=== PATIENT | female | born 1975 | race African-American/Black ===

== ENCOUNTER 2016-10-07 01:33 | Emergency (ER) | payer MEDICARE, MEDICAID ==
[2016-10-07] MEDS ORDERED: NAPROXEN 250 MG TABLET PO ONE (02:39)
--- NOTE | 2016-10-07 02:42 | ER Document Report ---
ED General Pain - General Chief Complaint: Pain All Over Stated Complaint: ABDOMINAL CRAMPS AND PAIN Notes: Patient is a 40-year-old female, past medical history osteoarthritis and frequent muscle cramps, presents with her usual muscle aches and cramping that she gets when she has her menstrual period. She has been seen in the emergency room multiple times for this issue. She tried her home ibuprofen and Tylenol without much relief. "I need some Percocet." She denies leg swelling, numbness, tingling, fevers, headache, dysuria or back pain. TRAVEL OUTSIDE OF THE [place] IN LAST 30 DAYS: No - Related Data Allergies/Adverse Reactions: aspirin [Aspirin] Allergy (Intermediate, Verified 11/29/14 18:10) Edema Past Medical History - General Information source: Patient - Social History Smoking Status: Unknown if Ever Smoked Family History: Reviewed & Not Pertinent, DM, Malignancy Patient has suicidal ideation: No Patient has homicidal ideation: No Pulmonary Medical History: Reports: Hx Asthma Renal/ Medical History: Denies: Hx Peritoneal Dialysis Musculoskeltal Medical History: Reports Hx Arthritis Psychiatric Medical History: Reports: Hx Depression - Immunizations Immunizations up to date: Yes Hx Diphtheria, Pertussis, Tetanus Vaccination: Yes Review of Systems - Review of Systems Notes: REVIEW OF SYSTEMS: CONSTITUTIONAL: -fevers, -chills EENT: -eye pain, -difficulty swallowing, -nasal congestion CARDIOVASCULAR:-chest pain, -syncope. RESPIRATORY: -cough, -SOB GASTROINTESTINAL: -abdominal pain, - nausea, -vomiting, -diarrhea GENITOURINARY: -dysuria, -hematuria MUSCULOSKELETAL: +muscle cramps, -back pain, -neck pain SKIN: -rash or skin lesions. HEMATOLOGIC: -easy bruising or bleeding. LYMPHATIC: -swollen, enlarged glands. NEUROLOGICAL: -altered mental status or loss of consciousness, -headache, - neurologic symptoms PSYCHIATRIC: -anxiety, -depression. ALL OTHER SYSTEMS REVIEWED AND NEGATIVE. Physical Exam - Vital signs Vitals: Temp Pulse Resp BP Pulse Ox 98.6 F 69 18 109/55 L 97 10/07/16 01:35 10/07/16 01:35 10/07/16 01:35 10/07/16 01:35 10/07/16 01:35 - Notes Notes: PHYSICAL EXAMINATION: GENERAL: Well-appearing, well-nourished and in no acute distress. HEAD: Atraumatic, normocephalic. EYES: Pupils equal round and reactive to light, extraocular movements intact, sclera anicteric, conjunctiva are normal. ENT: nares patent, oropharynx clear without exudates. Moist mucous membranes. NECK: Normal range of motion, supple without lymphadenopathy LUNGS: Breath sounds clear to auscultation bilaterally and equal. No wheezes rales or rhonchi. HEART: Regular rate and rhythm without murmurs ABDOMEN: Soft, nontender, normoactive bowel sounds. No guarding, no rebound. No masses appreciated. EXTREMITIES: Normal range of motion, no pitting or edema. No cyanosis. NEUROLOGICAL: Cranial nerves grossly intact. Normal speech, normal gait. Normal sensory, motor, and reflex exams. PSYCH: Normal mood, normal affect. SKIN: Warm, Dry, normal turgor, no rashes or lesions noted. Course - Re-evaluation Re-evalutation: Patient appears anxious, but well. Will treat her muscle cramps with Naprosyn and Tramadol with follow-up at her primary care physician. - Vital Signs Vital signs: Temp Pulse Resp BP Pulse Ox 97.6 F 66 16 121/88 H 96 10/07/16 02:59 10/07/16 02:59 10/07/16 02:59 10/07/16 02:59 10/07/16 02:59 Discharge - Discharge Clinical Impression: Cramp in muscle Condition: Good Disposition: HOME, SELF-CARE Additional Instructions: Muscle Strain You have strained a muscle -- torn the fibers within the muscle. This often occurs with strenuous exertion, or during an injury that suddenly stretches the muscle. The seriousness of a strain varies. Some strains heal within days, others cause problems for months. X-rays cannot show a muscle strain. X-rays are taken only if symptoms suggest that a fracture could be present. The usual treatment of a muscle strain is rest and ice packs. Sometimes, a sling, splint, or crutches may be necessary to rest the muscle. The muscle can be used again once pain subsides. Severe strains require a special exercise and stretching program to prevent permanent stiffness and disability. Your doctor will advise you if this will be necessary. Call the doctor immediately if pain or swelling becomes severe, or if numbness or discoloration develop. Prescriptions: Naproxen [Naprosyn 375 Mg Tablet] 500 mg PO Q12H #14 tablet
[2016-10-07] MEDS ORDERED: TRAMADOL HCL 50 MG TABLET PO ONE (02:43)
[2016-10-07 03:02] VITALS: BP 121/88
== END 2016-10-07 02:59 | disposition home or self-care (01) ==
LOC: ER 01:33
DX: M62.838 Other muscle spasm (principal); R10.9 Unspecified abdominal pain; J45.909 Unspecified asthma, uncomplicated
CPT/HCPCS: 99284; A9270 ×2

== ENCOUNTER 2017-02-23 13:12 | Emergency (ER) | payer MEDICARE, MEDICAID ==
[2017-02-23 13:23] VITALS: BP 147/70
[2017-02-23] MEDS ORDERED: NAPROXEN 250 MG TABLET PO ONE (14:13)
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
== END 2017-02-23 14:30 | disposition home or self-care (01) ==
LOC: ER 13:12
DX: M54.9 Dorsalgia, unspecified (principal); M79.1 Myalgia; R05 Cough; G89.29 Other chronic pain
CPT/HCPCS: 99283; A9270

== ENCOUNTER 2017-05-25 08:08 | Emergency (ER) | payer MEDICARE, MEDICAID ==
--- NOTE | 2017-05-25 08:39 | ER Document Report ---
Addendum entered and electronically signed by MICKY FORMAN PA-C 05/25/17 17 :55: Discharge - Discharge Clinical Impression: Enteritis, Generalized weakness Condition: Good Disposition: HOME, SELF-CARE Additional Instructions: Home and rest. Medications prescribed. As we discussed this may need referral to a supervisor elementary education/stomach MD. I will give you one of the doctors in the local area that you can contact her office to see if they can accommodate you. This may be something that clears up on its own. At this point we will make sure that she understood a comfortable. I am going to be placing you on antibiotics and a pain medication for the cramping. This medication can cause you to come have constipation as well. Make sure that you maintain a normal bowel habit you may want to add some MiraLAX [id number] to your diet or some Citrucel or Metamucil. Try to avoid anything spicy at this time. Again should you have any concerns or problems if you have intractable vomiting or you have increasing pain return to ER for recheck. I have given you the name of 2 supervisor elementary education that are local here to the hospital you may contact her office to see if they can accommodate you. I highly suggest that you also establish with a primary care provider and I would do this sometime the first of the week. Prescriptions: Promethazine HCl [Phenergan 25 mg Tablet] 25 mg PO Q4HP PRN #20 tablet PRN Reason: Ciprofloxacin HCl [Cipro 500 mg Tablet] 500 mg PO BID #20 tablet Fluconazole [Diflucan] 150 mg PO ONCE PRN #1 tablet PRN Reason: Hydrocodone/Acetaminophen [[place] 7.5-325 Tablet] 1 each PO Q6 PRN #15 tablet PRN Reason: Metronidazole [Flagyl 500 mg Tablet] 500 mg PO TID #21 tablet Forms: Elevated Blood Pressure Referrals: KEVIN CHRISTIANSON MD [ACTIVE STAFF] - Follow up as needed STEPHY SOLER MD [ACTIVE STAFF] - Follow up as needed Original Note: ED General - General Mode of Arrival: Ambulatory Information source: Patient TRAVEL OUTSIDE OF THE [place] IN LAST 30 DAYS: No - HPI Patient complains to provider of: Lower abdominal pain Onset: Other - Off and on for the past month greater the past 2 days. Onset/Duration: Gradual, Intermittent, Worse Quality of pain: Sharp Severity: Moderate Pain Level: 3 Associated symptoms: denies: None, Allergy/hay fever, Body/muscle aches, Chest pain, Chills, Nonproductive cough, Productive cough, Diarrhea, Drooling, Earache , Fever, Headache, Hoarseness, Hurts to breath, Leg swelling, Nausea, Vomiting, Rhinnorhea, Sinus pain/drainage, Shortness of breath, Slow to respond, Sore throat, Sweating, Weakness, Other Exacerbated by: Other - Constipation Relieved by: Other - Bowel movements <MICKY FORMAN - Last Filed: 05/25/17 17:54> <JEFFERY MONTOYA - Last Filed: 05/25/17 22:00> - General Chief Complaint: Abdominal Pain Stated Complaint: STOMACH PAIN Time Seen by Provider: 05/25/17 08:24 Notes: Patient is a 41-year-old morbidly obese black female presents emergency room today with complaint of suprapubic pain and tenderness. Patient states that it started approximately 1 month ago and has been off and on. This most recent bout started 2 days ago. Patient states that she has increased frequency but no discomfort with urination. She also states that bowel movements do give her some relief. She denies any fever no shortness of breath and no traumatic injury associated with the pain and discomfort. Patient has no history of abdominal surgeries she is sexually active occasionally and denies any dyspareunia she also denies any vaginal discharge. (MICKY FORMAN) - Related Data Allergies/Adverse Reactions: aspirin [Aspirin] Allergy (Intermediate, Verified 02/23/17 14:03) Edema naproxen Allergy (Verified 05/25/17 08:14) Past Medical History - General Information source: Patient Last Menstrual Period: 3 days ago - Social History Smoking Status: Never Smoker Chew tobacco use (# tins/day): No Frequency of alcohol use: Rare Drug Abuse: None Lives with: Family Family History: DM, Malignancy. denies: Arthritis, CAD, COPD, CVA, Hyperlipidemia, Hypertension, Thyroid Disfunction Patient has suicidal ideation: No Patient has homicidal ideation: No Pulmonary Medical History: Reports: Hx Asthma Renal/ Medical History: Denies: Hx Peritoneal Dialysis Musculoskeltal Medical History: Reports Hx Arthritis Psychiatric Medical History: Reports: Hx Depression - Immunizations Immunizations up to date: Yes Hx Diphtheria, Pertussis, Tetanus Vaccination: Yes <MICKY FORMAN Jennifer - Last Filed: 05/25/17 17:54> Review of Systems - Review of Systems Constitutional: No symptoms reported EENT: No symptoms reported Cardiovascular: No symptoms reported Respiratory: No symptoms reported Gastrointestinal: See HPI, Nausea, Last bowel movement Genitourinary: Frequency Female Genitourinary: See HPI Musculoskeletal: No symptoms reported Skin: No symptoms reported Hematologic/Lymphatic: No symptoms reported Neurological/Psychological: No symptoms reported -: Yes All other systems reviewed and negative <MICKY FORMAN Jennifer - Last Filed: 05/25/17 17:54> Physical Exam - Vital signs Interpretation: Hypotensive - General General appearance: Alert In distress: None - Respiratory Respiratory status: No respiratory distress Chest status: Nontender Breath sounds: Normal. No: Decreased air movement, Nonproductive cough, Productive cough, Rales, Rhonchi, Stridor, Wheezing, Other Chest palpation: Normal - Cardiovascular Rhythm: Regular Heart sounds: Normal auscultation Murmur: No - Abdominal Inspection: Morbidly Obese Distension: No distension, Distended. No: Tympanitic, Fluid wave, Distended bladder, Other Bowel sounds: Normal Tenderness: Other - Tenderness is only appreciated over the suprapubic area this time. Organomegaly: Other - Examination patient's lower abdomen shows no tenderness to either right or left lower quadrants. There is reproducible tenderness suprapubically. - Genitourinary External exam: Other - External vaginal exam showed patient to be somewhat unkept. Examination of the external genitalia appeared normal however. There was a slight whitish discharge noticed on preexamination. Speculum exam: Cervix closed, Vaginal discharge, Other - Further exam of the vaginal wall show them to be somewhat moderately dry it was little difficult extending the speculum even with K-Y jelly on it into the vaginal vault area. Eventually we were able to work her way down to the cervix it appeared normal. It was closed. There was a slight thick type of a discharge noted surrounding the area behind the cervix. There was no foul fishy odor. Vaginal bleeding: None Bimanuel exam: Normal. No: Cervical motion tender, Bladder/Urethral tender, Adnexal mass, Adnexal tenderness - Again bimanual exam does not show any CMT or any abnormal areas of suspicion for ovarian problems., Uterus enlarged, Other - Extremities General upper extremity: Normal inspection General lower extremity: Normal inspection - Neurological Neuro grossly intact: Yes Cognition: Normal Orientation: AAOx4 [place] Coma Scale Eye Opening: Spontaneous [place] Coma Scale Verbal: Oriented [place] Coma Scale Motor: Obeys Commands [place] Coma Scale Total: 15 Speech: Normal <MICKY FORMAN - Last Filed: 05/25/17 17:54> - Vital signs Vitals: Temp Pulse Resp BP Pulse Ox 98.4 F 79 18 96/68 L 98 05/25/17 08:20 05/25/17 08:20 05/25/17 08:20 05/25/17 08:20 05/25/17 08:20 Course - Laboratory Result Diagrams: 05/25/17 10:40 05/25/17 10:40 <MICKY FORMAN - Last Filed: 05/25/17 17:54> - Laboratory Result Diagrams: 05/25/17 10:40 05/25/17 10:40 <JEFFERY MONTOYA E - Last Filed: 05/25/17 22:00> - Vital Signs Vital signs: Temp Pulse Resp BP Pulse Ox 98.4 F 90 17 105/65 98 05/25/17 18:04 05/25/17 18:04 05/25/17 18:04 05/25/17 18:04 05/25/17 18:04 - Laboratory Laboratory results interpreted by me: 05/25/17 05/25/17 08:46 10:40 Sodium 146.3 H Chloride 110 H Urine Protein 30 H Urine Urobilinogen 4.0 H - Transfer of Care Notes: 05/25/17 15:34 Patieint extended stay due to wait on help for pelvic. For resultsxs of pelvic labs and then the need to do CT abd for completeness. 05/25/17 17:35 Patient was found to have on her last study of the day CT showed the patient has diffuse edema/inflammation of the bowel wall of the distal small bowel extending into the terminal ileum this is consistent with an enteritis it may be due to inflammatory bowel disease or infectious etiology. At this point patient has been here for quite a while primarily because we have started from the back and working forward. We will DC patient home on some Cipro and Flagyl for coverage a little pain medication for the cramping. We will give her follow-up with a local GI. Patient is a static and we were able to find what is causing her pain and discomfort area (MICKY FORMAN) Discharge <MICKY FORMAN T - Last Filed: 05/25/17 17:54> <JEFFERY MONTOYA Rena - Last Filed: 05/25/17 22:00> - Discharge Clinical Impression: Enteritis, Generalized weakness Condition: Good Disposition: HOME, SELF-CARE Additional Instructions: Home and rest. Medications prescribed. As we discussed this may need referral to a supervisor elementary education/stomach MD. I will give you one of the doctors in the local area that you can contact her office to see if they can accommodate you. This may be something that clears up on its own. At this point we will make sure that she understood a comfortable. I am going to be placing you on antibiotics and a pain medication for the cramping. This medication can cause you to come have constipation as well. Make sure that you maintain a normal bowel habit you may want to add some MiraLAX [id number] to your diet or some Citrucel or Metamucil. Try to avoid anything spicy at this time. Again should you have any concerns or problems if you have intractable vomiting or you have increasing pain return to ER for recheck. I have given you the name of 2 supervisor elementary education that are local here to the hospital you may contact her office to see if they can accommodate you. I highly suggest that you also establish with a primary care provider and I would do this sometime the first of the week. Prescriptions: Promethazine HCl [Phenergan 25 mg Tablet] 25 mg PO Q4HP PRN #20 tablet PRN Reason: Ciprofloxacin HCl [Cipro 500 mg Tablet] 500 mg PO BID #20 tablet Fluconazole [Diflucan] 150 mg PO ONCE PRN #1 tablet PRN Reason: Hydrocodone/Acetaminophen [[place] 7.5-325 Tablet] 1 each PO Q6 PRN #15 tablet PRN Reason: Metronidazole [Flagyl 500 mg Tablet] 500 mg PO TID #21 tablet Forms: Elevated Blood Pressure Referrals: KEVIN CHRISTIANSON MD [ACTIVE STAFF] - Follow up as needed STEPHY SOLER MD [ACTIVE STAFF] - Follow up as needed
[2017-05-25] MEDS ORDERED: HYDROCODONE/ACETAMINOPHEN 5-325 MG TABLET PO ONE ×2 (09:10→15:33)
[2017-05-25 09:40] LABS: APPEARANCE,URINE SLIGHTLY-CLOUDY; BILIRUBIN,URINE NEGATIVE (NEGATIVE); GLUCOSE, URINE NEGATIVE (NEGATIVE); KETONES,URINE NEGATIVE (NEGATIVE); LEUKOCYTE ESTERASE,URINE NEGATIVE (NEGATIVE); NITRITE,URINE NEGATIVE (NEGATIVE); PROTEIN,URINE 30 mg/dL (NEGATIVE)
[2017-05-25 09:45] LABS: BACTERIA,URINE 3+ /HPF; RBC,URINE 0-1 /HPF
[2017-05-25 10:51] LABS: ABSOLUTE BASOPHILS # (AUTO) 0.1 10^3/uL (0.0-0.2); ABSOLUTE EOSINOPHILS # (AUTO) 0.1 10^3/uL (0.0-0.6); ABSOLUTE MONOCYTES (AUTO) 0.4 10^3/uL (0.1-1.4); ABSOLUTE NEUT (AUTO) 5.6 10^3/uL (1.7-8.2); BASOPHILS % (AUTO) 1.1 % (0-2); EOSINOPHILS % (AUTO) 0.6 % (0-6); HEMATOCRIT 36.1 % (36.0-47.0); HEMOGLOBIN 12.4 g/dL (12.0-15.5); HGB HCT DIFFERENCE 1.1; LYMPHOCYTES % (AUTO) 24.8 % (13-45); MEAN CORPUSCULAR HEMOGLOBIN 29.2 pg (27.0-33.4); MEAN CORPUSCULAR HGB CONC 34.4 g/dL (32.0-36.0); MEAN CORPUSCULAR VOLUME 85 fl (80-97); MONOCYTES % (AUTO) 4.5 % (3-13); RED BLOOD COUNT 4.25 10^6/uL (3.72-5.28); RED CELL DISTRIBUTION WIDTH 12.5 % (11.5-14.0); WHITE BLOOD COUNT 8.1 10^3/uL (4.0-10.5)
[2017-05-25 11:09] LABS: ALANINE AMINOTRANSFERASE 31 U/L (9-52); ALKALINE PHOSPHATASE 109 U/L (38-126); ANION GAP 13 (5-19); ASPARTATE AMINO TRANSFERASE 33 U/L (14-36); BILIRUBIN,DIRECT 0.4 mg/dL (0.0-0.4); BILIRUBIN,TOTAL 0.7 mg/dL (0.2-1.3); BLOOD UREA NITROGEN 15 mg/dL (7-20); CALCIUM 9.4 mg/dL (8.4-10.2); CARBON DIOXIDE 23 mmol/L (22-30); CHLORIDE 110 mmol/L (98-107); CREATININE RESULT 0.71 mg/dL (0.52-1.25); GLUCOSE 79 mg/dL (75-110); LIPASE 69.9 U/L (23-300); POTASSIUM 4.6 mmol/L (3.6-5.0); SODIUM 146.3 mmol/L (137-145); TOTAL PROTEIN 7.3 g/dL (6.3-8.2)
--- NOTE | 2017-05-25 11:25 | RADIOLOGY REPORT (SQ) ---
EXAM DESCRIPTION: U/S NON OB PEL TV W/DOPPLER COMPLETED DATE/TIME: 05/25/2017 11:16 am REASON FOR STUDY: pelvic pain Poss torsion right side COMPARISON: Pelvic ultrasound 01/25/2016 CT abdomen pelvis 06/13/2015 TECHNIQUE: Dynamic and static grayscale images acquired of the pelvis via transvaginal approach and recorded on PACS. Additional selected color Doppler and spectral images recorded. LIMITATIONS: None. FINDINGS: UTERUS: Contour normal. No mass. Uterus is 7 x 3.3 x 3.1 cm in size. ENDOMETRIAL STRIPE: No focal or generalized thickening. No masses. 6 mm in thickness. CERVIX: No nabothian cysts. RIGHT OVARY: No abnormal masses. Right ovary is 1.9 x 1.9 x 0.7 cm in size RIGHT OVARY DOPPLER: Normal arterial vascular flow without evidence for torsion. LEFT OVARY: No abnormal masses. Left ovary 2.5 x 1.3 x 1.7 cm in size LEFT OVARY DOPPLER: Normal arterial vascular flow without evidence for torsion. FREE FLUID: None noted. OTHER: No other significant finding. IMPRESSION: NORMAL TRANSVAGINAL PELVIC ULTRASOUND. TECHNICAL DOCUMENTATION: JOB ID: [id number] [employer]- All Rights Reserved
--- NOTE | 2017-05-25 15:42 | RADIOLOGY REPORT (SQ) ---
EXAM DESCRIPTION: CT ABD/PELVIS WITH IV ONLY COMPLETED DATE/TIME: 05/25/2017 3:04 pm REASON FOR STUDY: Abdominal pain greater RLQ COMPARISON: 06/13/2015. TECHNIQUE: CT scan of the abdomen and pelvis performed using helical scanning technique with dynamic intravenous contrast injection. No oral contrast. Images reviewed with lung, soft tissue, and bone windows. Reconstructed coronal and sagittal MPR images reviewed. Delayed images for evaluation of the urinary system also acquired. All images stored on PACS. All CT scanners at this facility use dose modulation, iterative reconstruction, and/or weight based d osing when appropriate to reduce radiation dose to as low as reasonably achievable (ALARA). [facility]: Dose Right [facility]: CareDose [facility]: Dose Right [facility]: Teradose 4D [facility]: [employer] CONTRAST TYPE AND DOSE: contrast/concentration: Isovue 370.00 mg/ml; Total Contrast Delivered: 95.0 ml; Total Saline Delivered: 71.0 ml RENAL FUNCTION: BUN 15 creatinine 0.71. RADIATION DOSE: . LIMITATIONS: None. FINDINGS: LOWER CHEST: No significant findings. No nodules or infiltrates. LIVER: Normal size. Stable small cyst in the left lobe. No solid masses. No dilated ducts. SPLEEN: Normal size. No focal lesions. PANCREAS: No masses. No significant calcifications. No adjacent inflammation or peripancreatic fluid collections. Pancreatic duct not dilated. GALLBLADDER: No identified stones by CT criteria. No inflammatory changes to suggest cholecystitis. ADRENAL GLANDS: No significant masses or asymmetry. RIGHT KIDNEY AND URETER: No solid masses. No significant calcifications. No hydronephrosis or hyd roureter. LEFT KIDNEY AND URETER: No solid masses. No significant calcifications. No hydronephrosis or hydr oureter. AORTA AND VESSELS: No aneurysm. No dissection. Renal arteries, SMA, celiac without stenosis. RETROPERITONEUM: No retroperitoneal adenopathy, hemorrhage or masses. BOWEL AND PERITONEAL CAVITY: Diffuse edema/inflammation of the bowel wall of the distal small bowel e xtending to the terminal ileum. No free fluid or peritoneal masses. APPENDIX: Normal. PELVIS: No mass. No free fluid. Normal bladder. ABDOMINAL WALL: No masses. No hernias. BONES: No significant or acute findings. OTHER: No other significant finding. IMPRESSION: 1. DIFFUSE EDEMA/INFLAMMATION OF THE BOWEL WALL OF THE DISTAL SMALL BOWEL EXTENDING TO THE TERMINAL I LEUM. CONSISTENT WITH ENTERITIS AND MAY BE DUE TO INFLAMMATORY BOWEL DISEASE OR INFECTIOUS ETIOLOGY. 2. NO OTHER SIGNIFICANT OR ACUTE FINDING IN THE ABDOMEN OR PELVIS ON CT SCAN WITH IV CONTRAST. TECHNICAL DOCUMENTATION: JOB ID: [id number] Quality ID # [id number]: Final reports with documentation of one or more dose reduction techniques (e.g., Au tomated exposure control, adjustment of the mA and/or kV according to patient size, use of iterative reconstruction technique) 2010 [employer]- All Rights Reserved
[2017-05-25 19:05] VITALS: BP 105/65
== END 2017-05-25 19:05 | disposition home or self-care (01) ==
LOC: ER 08:08
DX: K52.9 Noninfective gastroenteritis and colitis, unspecified (principal); R53.1 Weakness; E66.01 Morbid (severe) obesity due to excess calories; Z68.33 Body mass index [BMI] 33.0-33.9, adult; N89.8 Other specified noninflammatory disorders of vagina; R11.0 Nausea; R35.0 Frequency of micturition; J45.909 Unspecified asthma, uncomplicated; Z88.6 Allergy status to analgesic agent; Z88.8 Allergy status to other drugs, medicaments and biological substances
CPT/HCPCS: 99284; 36415; 87210; 83690; 85025; 81025; 80053; 81001; 76830; 93976; 74177; A9270

== ENCOUNTER 2017-09-16 08:03 | Day surgery (SDC) | payer MEDICARE, MEDICAID ==
[~2017-09-16 08:03] MED LIST: PROPOFOL INJ 200 MG/20 ML VIAL IV ONE
[2017-09-16 10:03] VITALS: BP 108/64
--- NOTE | 2017-09-16 13:50 | Operative Report ---
Operative Report DATE OF SURGERY: 09/16/17 Operative Report: The risks, benefits and alternatives of the procedure including risks of bleeding, perforation requiring surgery are explained to the patient in detail and informed consent is obtained. Patient is brought back to the endoscopy suite and placed in the left, lateral decubital position. Timeout was called. Propofol medications administered. A rectal examination is done which did not reveal any masses, tears or fissures. An Olympus videoscope was inserted into the patient's rectum. The scope was then carefully advanced all the way to the cecum. The cecum was identified by the usual anatomical landmarks including the ileocecal valve as well as the appendiceal office. Photodocumentation is obtained. The scope was then sequentially pulled back via the various segments of the colon including the ascending colon, hepatic flexure, transverse colon, splenic flexure, descending colon and finally in to the rectosigmoid portions of the colon. Retroflexion maneuvers performed. PREOPERATIVE DIAGNOSIS: Change in bowel habits POSTOPERATIVE DIAGNOSIS: Mild right-sided colon inflammation status post biopsy OPERATION: Colonoscopy with biopsy SURGEON: STEPHY SOLER ANESTHESIA: LMAC TISSUE REMOVED OR ALTERED: As noted above. COMPLICATIONS: None. ESTIMATED BLOOD LOSS: None. INTRAOPERATIVE FINDINGS: As noted above. PROCEDURE: Patient tolerated procedure well. No immediate postprocedure complications are noted. Patient discharged in good condition. Discharge date 09/16/2017. Discharge diet: Regular. Discharge activity: Regular. 2-3 week follow-up to discuss findings. Patient is instructed call the office or proceed to the emergency room should there be any further problems or questions. If biopsies are negative and no family history of colon cancer than 10 year surveillance.
== END 2017-09-16 10:15 | disposition home or self-care (01) ==
LOC: END 08:03
PROVIDERS: ATTEND Internal Medicine Gastroenterology
DX: K52.9 Noninfective gastroenteritis and colitis, unspecified (principal); M19.90 Unspecified osteoarthritis, unspecified site; Z79.891 Long term (current) use of opiate analgesic
CPT/HCPCS: 45380; 88305 ×2; J2704; 811

== ENCOUNTER 2017-11-08 09:45 | Emergency (ER) | payer MEDICARE, MEDICAID ==
[2017-11-08 10:11] VITALS: BP 112/66
[2017-11-08] MEDS ORDERED: OXYCODONE-ACETAMINOPHEN 5-325 MG TABLET PO ONE (10:14)
--- NOTE | 2017-11-08 10:21 | ER Document Report ---
ED General - General Chief Complaint: Pain All Over Stated Complaint: PAIN ALL OVER Time Seen by Provider: 11/08/17 10:12 Notes: 41-year-old female PMH chronic body aches/pains sent here by her physician's office due to the patient's request for narcotic pain medication. She reports her pain medication was stolen and that she filed a police report. She was told to come here for pain medicine and refills. She has had this chronic body aches/pain illness for the past 40 years and is unchanged from baseline. She reports that the recent weather changes cause her flares. Denies any other symptoms. TRAVEL OUTSIDE OF THE [place] IN LAST 30 DAYS: No - Related Data Allergies/Adverse Reactions: aspirin [Aspirin] Allergy (Intermediate, Verified 09/16/17 08:10) Edema naproxen Allergy (Verified 09/16/17 08:10) BC POWDER Adverse Reaction (Uncoded 09/16/17 08:10) Past Medical History - Social History Smoking Status: Unknown if Ever Smoked Family History: DM, Malignancy. denies: Arthritis, CAD, COPD, CVA, Hyperlipidemia, Hypertension, Thyroid Disfunction - Past Medical History Cardiac Medical History: Denies: Hx Coronary Artery Disease, Hx Heart Attack, Hx Hypertension Pulmonary Medical History: Denies: Hx Asthma, Hx Bronchitis, Hx COPD, Hx Pneumonia Neurological Medical History: Denies: Hx Cerebrovascular Accident, Hx Seizures Renal/ Medical History: Denies: Hx Peritoneal Dialysis Musculoskeltal Medical History: Reports Hx Arthritis Psychiatric Medical History: Reports: Hx Depression - Immunizations Immunizations up to date: Yes Hx Diphtheria, Pertussis, Tetanus Vaccination: Yes Review of Systems - Review of Systems Notes: See history of present illness for pertinent positive review of systems; otherwise all review of systems have been reviewed and are negative Physical Exam - Vital signs Vitals: Temp Pulse Resp BP Pulse Ox 99.4 F 82 19 112/66 99 11/08/17 10:04 11/08/17 10:04 11/08/17 10:04 11/08/17 10:04 11/08/17 10:04 - Notes Notes: PHYSICAL EXAMINATION: GENERAL: Well-appearing and in no acute distress. HEAD: Atraumatic, normocephalic. EYES: Pupils equal round and reactive to light, extraocular movements intact, sclera anicteric, conjunctiva are normal. ENT: nares patent, oropharynx clear without exudates. Moist mucous membranes. NECK: Normal range of motion, supple without lymphadenopathy LUNGS: CTAB and equal. No wheezes rales or rhonchi. HEART: Regular rate and rhythm without murmurs ABDOMEN: Soft, no tenderness. No facial grimacing/wincing upon palpation. No guarding, no rebound. EXTREMITIES: Normal range of motion, no pitting edema. No cyanosis. Minimal to mild tenderness to palpation of all extremity musculature NEUROLOGICAL: Cranial nerves grossly intact. Normal sensory/motor exams. PSYCH: Normal mood, normal affect. SKIN: Warm, Dry, normal turgor, no rashes or lesions noted Course - Re-evaluation Re-evalutation: 11/08/17 10:21 MEDICAL DECISION MAKING: I discussed with the patient we did not refill narcotic pain medication for chronic pain syndromes Will give her a dose of oxycodone here but no prescription Patient understands and agrees to the plan of care - Vital Signs Vital signs: Temp Pulse Resp BP Pulse Ox 99.4 F 82 19 112/66 99 11/08/17 10:04 11/08/17 10:04 11/08/17 10:04 11/08/17 10:04 11/08/17 10:04 Discharge - Discharge Clinical Impression: Medication refill Condition: Good Disposition: HOME, SELF-CARE Additional Instructions: The emergency department does not provide refills for narcotics. You were seen in the emergency department at [facility]. If you were given any sedating medications, be sure not to operate heavy machinery (example - driving ) and be sure you are not too sedated to walk appropriately. Please followup with your primary physician in the next few days for further management/ evaluation. Please return to the emergency department for worsening of symptoms or any symptom that you deem to be concerning or life-threatening. Thank you for allowing us to be part of your care.
== END 2017-11-08 10:23 | disposition home or self-care (01) ==
LOC: ER 09:45
DX: Z76.0 Encounter for issue of repeat prescription (principal); G89.4 Chronic pain syndrome
CPT/HCPCS: 99283; A9270

== ENCOUNTER 2018-03-11 16:28 | Emergency (ER) | payer MEDICARE, MEDICAID ==
[2018-03-11 16:43] VITALS: BP 107/65
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
== END 2018-03-11 18:07 | disposition home or self-care (01) ==
LOC: ER 16:28
DX: G89.29 Other chronic pain (principal); M54.9 Dorsalgia, unspecified; R11.0 Nausea; T40.2X6A Underdosing of other opioids, initial encounter; Z91.128 Patient's intentional underdosing of medication regimen for other reason; Y92.89 Other specified places as the place of occurrence of the external cause; Z91.14 Patient's other noncompliance with medication regimen; Z65.5 Exposure to disaster, war and other hostilities
CPT/HCPCS: 99281

== ENCOUNTER 2018-10-01 13:46 | Emergency (ER) | payer MEDICARE, MEDICAID ==
--- NOTE | 2018-10-01 14:04 | ER Document Report ---
ED Medical Screen (RME) - General Chief Complaint: Diarrhea Stated Complaint: ABDOMINAL PAIN,DIARRHEA Time Seen by Provider: 10/01/18 13:55 Primary Care Provider: SARAH CHURCH MD [Primary Care Provider] - Follow up as needed Mode of Arrival: Ambulatory Information source: Patient Notes: Patient presents to the emergency department with reports of diarrhea twice. R eports she is out of her pain meds and this is what happens when she is out of her pain meds. She reports chronic pain from arthritis. She reports Dr. Patel told her to come here for pain medication refill because he is out of town. Contacted Dr. Orosco's office. May answered the phone. she was familiar with patient she reports patient should not be out of her pain meds until Saturday. Patient has an appointment with Dr. Patel on Saturday. I have greeted and performed a rapid initial assessment of this patient. A comprehensive ED assessment and evaluation of the patient, analysis of test r esults and completion of the medical decision making process will be conducted by additional ED providers. Dictation of this chart was performed using voice recognition software; therefore, there may be some unintended grammatical errors. TRAVEL OUTSIDE OF THE [place] IN LAST 30 DAYS: No - Related Data Allergies/Adverse Reactions: aspirin [Aspirin] Allergy (Intermediate, Verified 10/01/18 13:50) Edema naproxen Allergy (Verified 10/01/18 13:50) BC POWDER Adverse Reaction (Uncoded 10/01/18 13:50) Past Medical History - Past Medical History Cardiac Medical History: Denies: Hx Coronary Artery Disease, Hx Heart Attack, Hx Hypertension Pulmonary Medical History: Denies: Hx Asthma, Hx Bronchitis, Hx COPD, Hx Pneumonia Neurological Medical History: Denies: Hx Cerebrovascular Accident, Hx Seizures Renal/ Medical History: Denies: Hx Peritoneal Dialysis Musculoskeltal Medical History: Reports Hx Arthritis Psychiatric Medical History: Reports: Hx Depression - Immunizations Immunizations up to date: Yes Hx Diphtheria, Pertussis, Tetanus Vaccination: Yes Physical Exam - Vital signs Vitals: Temp Pulse Resp BP Pulse Ox 98.5 F 84 16 132/70 H 98 10/01/18 13:51 10/01/18 13:51 10/01/18 13:51 10/01/18 13:51 10/01/18 13:51 Course - Vital Signs Vital signs: Temp Pulse Resp BP Pulse Ox 98.5 F 84 16 132/70 H 98 10/01/18 13:51 10/01/18 13:51 10/01/18 13:51 10/01/18 13:51 10/01/18 13:51 Doctor's Discharge - Discharge Referrals: SARAH CHURCH MD [Primary Care Provider] - Follow up as needed
[2018-10-01 14:35] LABS: ABSOLUTE BASOPHILS # (AUTO) 0.1 10^3/uL (0.0-0.2); ABSOLUTE EOSINOPHILS # (AUTO) 0.1 10^3/uL (0.0-0.6); ABSOLUTE LYMPHOCYTES (AUTO) 2.7 10^3/uL (0.5-4.7); ABSOLUTE MONOCYTES (AUTO) 0.4 10^3/uL (0.1-1.4); BASOPHILS % (AUTO) 0.7 % (0-2); EOSINOPHILS % (AUTO) 1.3 % (0-6); HEMOGLOBIN 14.5 g/dL (12.0-15.5); LYMPHOCYTES % (AUTO) 37.2 % (13-45); MEAN CORPUSCULAR HEMOGLOBIN 29.4 pg (27.0-33.4); MEAN CORPUSCULAR HGB CONC 34.6 g/dL (32.0-36.0); MEAN CORPUSCULAR VOLUME 85 fl (80-97); MONOCYTES % (AUTO) 6.1 % (3-13); PLATELET COUNT 395 10^3/uL (150-450); RED BLOOD COUNT 4.95 10^6/uL (3.72-5.28); SEGMENTED NEUTROPHILS % (AUTO) 54.7 % (42-78); TOTAL CELLS COUNTED % (AUTO) 100 %; WHITE BLOOD COUNT 7.3 10^3/uL (4.0-10.5)
[2018-10-01 14:40] LABS: APPEARANCE,URINE CLOUDY; BILIRUBIN,URINE NEGATIVE (NEGATIVE); COLOR,URINE AMBER; GLUCOSE, URINE NEGATIVE (NEGATIVE); KETONES,URINE TRACE mg/dL (NEGATIVE); LEUKOCYTE ESTERASE,URINE NEGATIVE (NEGATIVE); NITRITE,URINE NEGATIVE (NEGATIVE); PROTEIN,URINE 30 mg/dL (NEGATIVE); URINE SPECIFIC GRAVITY 1.032
[2018-10-01 15:04] LABS: ALANINE AMINOTRANSFERASE 17 U/L (9-52); ALBUMIN 4.5 g/dL (3.5-5.0); ALKALINE PHOSPHATASE 86 U/L (38-126); ANION GAP 10 (5-19); ASPARTATE AMINO TRANSFERASE 22 U/L (14-36); BILIRUBIN,DIRECT 0.2 mg/dL (0.0-0.4); BILIRUBIN,TOTAL 0.6 mg/dL (0.2-1.3); BLOOD UREA NITROGEN 21 mg/dL (7-20); CARBON DIOXIDE 23 mmol/L (22-30); CHLORIDE 110 mmol/L (98-107); GLUCOSE 103 mg/dL (75-110); LIPASE 168.2 U/L (23-300); POTASSIUM 4.1 mmol/L (3.6-5.0); SODIUM 142.5 mmol/L (137-145); TOTAL PROTEIN 8.5 g/dL (6.3-8.2)
--- NOTE | 2018-10-01 17:06 | ER Document Report ---
ED GI/ - General Chief Complaint: Diarrhea Stated Complaint: ABDOMINAL PAIN,DIARRHEA Time Seen by Provider: 10/01/18 13:55 Primary Care Provider: SARAH CHURCH MD [NO LOCAL MD] - Follow up as needed Mode of Arrival: Ambulatory Information source: Patient, [facility] Records Notes: Patient is a 42-year-old female comes emergency room today with what sounds like abdominal pain. I have reviewed the note from the triage mid-level and it indicated that patient was here because she states when she gets diarrhea and her belly hurts like this is she is run out of her pain medications. The note also stated that patient told her that she had been told by Dr. Patel to come to the ER to get pain medications because she is out of town. The mid-level Pat Salty contacted Dr. Patel's office and talk to may his nurse. She informed to the patient she is still having a pain medications and has an appointment with Dr. Patel on Saturday. On entering the room patient indicated that that is not why she is here she is here because of abdominal pain and that her mother had colon cancer and she is kind of been in denial and she wants her belly checked out. She then informs me that she had a colonoscopy approximately a year ago. And patient indicated she wanted me to work her up for abdominal pain and discomfort. TRAVEL OUTSIDE OF THE [place] IN LAST 30 DAYS: No - HPI Patient complains to provider of: Abdominal pain, Diarrhea Onset: Other - 2 days Timing/Duration: Sudden Quality of pain: Achy Severity at maximum: Mild Severity in ED: Moderate Pain Level: 3 Location: LUQ, LLQ, RUQ, RLQ Vaginal bleeding (Compared to normal period): None LMP: Approximately 3 weeks ago Sexual history: Active Associated symptoms: Diarrhea, Nausea, Urinary frequency Exacerbated by: Denies Relieved by: Denies Similar symptoms previously: Yes Recently seen / treated by doctor: Yes - Related Data Allergies/Adverse Reactions: aspirin [Aspirin] Allergy (Intermediate, Verified 10/01/18 13:50) Edema naproxen Allergy (Verified 10/01/18 13:50) BC POWDER Adverse Reaction (Uncoded 10/01/18 13:50) Past Medical History - General Information source: Patient, DrTunde Office, [facility] Records - Social History Smoking Status: Never Smoker Cigarette use (# per day): No Chew tobacco use (# tins/day): No Smoking Education Provided: No Frequency of alcohol use: None Drug Abuse: None Family History: Reviewed & Not Pertinent, DM, Malignancy. denies: Arthritis, CAD, COPD, CVA, Hyperlipidemia, Hypertension, Thyroid Disfunction Patient has suicidal ideation: No Patient has homicidal ideation: No - Past Medical History Cardiac Medical History: Denies: Hx Coronary Artery Disease, Hx Heart Attack, Hx Hypertension Pulmonary Medical History: Denies: Hx Asthma, Hx Bronchitis, Hx COPD, Hx Pneumonia Neurological Medical History: Denies: Hx Cerebrovascular Accident, Hx Seizures Renal/ Medical History: Denies: Hx Peritoneal Dialysis Musculoskeletal Medical History: Reports Hx Arthritis Psychiatric Medical History: Reports: Hx Depression - Immunizations Immunizations up to date: Yes Hx Diphtheria, Pertussis, Tetanus Vaccination: Yes Review of Systems - Review of Systems Constitutional: No symptoms reported EENT: No symptoms reported Cardiovascular: No symptoms reported Respiratory: No symptoms reported Gastrointestinal: See HPI, Abdominal pain Genitourinary: No symptoms reported Female Genitourinary: No symptoms reported Musculoskeletal: No symptoms reported Skin: No symptoms reported Hematologic/Lymphatic: No symptoms reported Neurological/Psychological: No symptoms reported -: Yes All other systems reviewed and negative Physical Exam - Vital signs Vitals: Temp Pulse Resp BP Pulse Ox 98.5 F 84 16 132/70 H 98 10/01/18 13:51 10/01/18 13:51 10/01/18 13:51 10/01/18 13:51 10/01/18 13:51 Interpretation: Hypertensive - Notes Notes: PHYSICAL EXAMINATION: GENERAL: Well-appearing, well-nourished and in no acute distress. HEAD: Atraumatic, normocephalic. EYES: Pupils equal round and reactive to light, extraocular movements intact, conjunctiva are normal. ENT: Nares patent, oropharynx clear without exudates. Moist mucous membranes. NECK: Normal range of motion, supple without lymphadenopathy LUNGS: Breath sounds clear to auscultation bilaterally and equal. No wheezes rales or rhonchi. HEART: Regular rate and rhythm without murmurs ABDOMEN: Examination patient's abdomen shows patient to have mild distention of the abdomen in all 4 quads. Slightly tympanitic to percussion. Bowel sounds are decreased in all 4 quads. There is some firmness on palpation of patient's lower right and left quadrants. No voluntary guarding no guarding. Patient displays no rebound psoas no peritoneal signs. Female : deferred\patient refused Musculoskeletal: Normal range of motion, no pitting or edema. No cyanosis. NEUROLOGICAL: Normal speech, normal gait. Normal sensory, motor exams PSYCH: Normal mood, normal affect. SKIN: Warm, Dry, normal turgor, no rashes or lesions noted., Course - Re-evaluation Re-evalutation: 10/01/18 17:09 I read the triage note by Amelie Pond that indicated a by Dr. Patel and his office staff and the patient should not be out of medications i.e. her oxycodone. I looked her up on the [facility] aware site patient is like clockwork on getting her pain medications from this physician she last got 90 Percocet 7.5 on 09/04/2018 this indicates the patient should have enough medication until she has her appointment with Dr. Patel on Saturday. Therefore we are not writing for any pain medications. I will supply her with some clonidine 1 pill twice a day for 5 days. I will write her for some nausea medication. My belly exam on patient was what I felt was somewhat abnormal and that she had a formed the lower abdomen I checked her labs which were all normal and however my findings on her belly concerning enough that I informed her I was going to do a CT with contrast. When I explained to patient that she be going to work for the IV contrast she refused stating that she had the same test done at [facility] 2 months ago and there was no problems. I explained to patient that things changed and that I do not have copy of this report and she is here with contin uing complaints and therefore I have nothing to go on. Again patient refused stating that she did not want to have a CT repeated. At this time we will treat patient as stated with the clonidine 0.1 twice daily and Zofran 4 mg ODT and some Levsin. Again I offered to work patient up but she refused. - Vital Signs Vital signs: Temp Pulse Resp BP Pulse Ox 98.5 F 84 16 132/70 H 98 10/01/18 13:51 10/01/18 13:51 10/01/18 13:51 10/01/18 13:51 10/01/18 13:51 - Laboratory Result Diagrams: 10/01/18 14:10 10/01/18 14:10 Laboratory results interpreted by me: 10/01/18 10/01/18 14:10 14:10 Chloride 110 H BUN 21 H Total Protein 8.5 H Urine Protein 30 H Urine Ketones TRACE H Urine Blood LARGE H Urine Urobilinogen 4.0 H Discharge - Discharge Clinical Impression: Abdominal pain Qualifiers: Abdominal location: generalized Qualified Code(s): R10.84 - Generalized abdominal pain Drug withdrawal Qualifiers: Substance type: opioid Qualified Code(s): F11.23 - Opioid dependence with withdrawal Condition: Fair Disposition: HOME, SELF-CARE Instructions: Abdominal Pain ([facility]), Antispasmodics ([facility]) Additional Instructions: The original provider that saw you did contact Dr. Patel's office and talk to the personnel there who indicated that he should have enough medication for pain until Saturday when you see him. At this time am going to give you some medication that will help treat the symptoms of withdrawal. You have refused to have a CT of her abdomen stating that it was done at [facility] 2 months ago did not want to repeat that and since I have explained you I cannot really treat you less I know what I am dealing with and 2 months as a long time with the belly pain is gotten worse. Patient again rejected me in my offer to have the CT done. I informed her there was little else I could do for her to treat symptoms and she said okay. I have told her that I cannot read through her belly so CT is the only way I can tell if there is anything going on. Again she refused Prescriptions: Clonidine HCl [Catapres 0.1 mg Tablet] 0.1 mg PO Q12 #10 tablet Hyoscyamine Sulfate [Levsin 0.125 Tablet] 0.125 mg PO Q4 PRN #25 tablet PRN Reason: Ondansetron [Zofran Odt 4 mg Tablet] 1 - 2 tab PO Q4H PRN #15 tab.rapdis PRN Reason: For Nausea/Vomiting Forms: Parent Work Note, Elevated Blood Pressure Referrals: SARAH CHURCH MD [NO LOCAL MD] - Follow up as needed
[2018-10-01 17:30] VITALS: BP 103/57
== END 2018-10-01 17:30 | disposition home or self-care (01) ==
LOC: ER 13:46
DX: F11.23 Opioid dependence with withdrawal (principal); R10.84 Generalized abdominal pain; R19.7 Diarrhea, unspecified; R11.0 Nausea; R35.0 Frequency of micturition; R14.0 Abdominal distension (gaseous); Z88.6 Allergy status to analgesic agent; Z88.8 Allergy status to other drugs, medicaments and biological substances
CPT/HCPCS: 36415; 80053; 81001; 83690; 85025; 99284